=== PATIENT | female | born 1985 | race Caucasian/White ===

== ENCOUNTER 2024-07-14 11:09 | Emergency (ER) | payer MEDICAID ==
[~2024-07-14] VITALS: Ht 142.2 cm; Wt 68.0 kg
[2024-07-14 11:15] VITALS: O2SAT 100
[2024-07-14 12:06] LABS: BASOPHILS % 1.2 % (0.0-2.0); HEMATOCRIT. 27.9 % (36.0-48.0); HEMOGLOBIN. 8.2 g/dL (12.0-16.0); LYMPHOCYTES % 32.9 % (20.0-50.0); MEAN CORPUSCULAR HEMOGLOBIN 19.2 pg (28.0-32.0); MEAN CORPUSCULAR HGB CONC 29.5 g/dL (31.0-37.0); MEAN PLATELET VOLUME 8.6 fl (7.4-10.4); MONOCYTES % 10.3 % (2.0-8.0); NEUTROPHILS % 52.6 % (40.0-76.0); PLATELET 235 x1000/uL (130-400); RED CELL DISTRIBUTION WIDTH 21.5 % (11.6-14.6); WHITE BLOOD COUNT 6.3 x1000/uL (4.5-11.0)
[2024-07-14 12:18] LABS: DIFFERENTIAL COMMENT 1
[2024-07-14 12:19] LABS: ADD RBC MORPHOLOGY YES
[2024-07-14 12:34] LABS: PLATELET ESTIMATE NORMAL
[2024-07-14 12:35] LABS: HYPOCHROMASIA 4+
[2024-07-14 12:36] LABS: MICROCYTOSIS 3+
[2024-07-14 12:37] LABS: ANISOCYTOSIS 3+
[2024-07-14 12:38] LABS: CHLORIDE 104 mEq/L (98-107); POTASSIUM 3.8 mEq/L (3.5-5.1); SODIUM 136 mEq/L (136-145)
[2024-07-14 12:39] LABS: CALCIUM 9.1 mg/dL (8.7-10.4); CARBON DIOXIDE 27 mEq/L (21-32)
[2024-07-14 12:44] LABS: CREATININE 0.7 mg/dL (0.6-1.0); GLUCOSE 168 mg/dL (70-105); UREA NITROGEN BLOOD 10 mg/dL (9-23)
[2024-07-14 14:01] VITALS: BP 151/85; PULSE 71; RESP 16; TEMP 36.66960; O2SAT 99
== END 2024-07-14 14:08 | disposition home or self-care (01) ==
LOC: ER 11:09
DX: D64.9 Anemia, unspecified (principal)
CPT/HCPCS: 36415; 80048; 85025; 99283